=== PATIENT | female | born 1985 | race Caucasian/White ===

== ENCOUNTER → 2019-07-16 | Outpatient (CLI) | payer OTHER | LOC: COL.RAD 13:23 | DX: M54.5 Low back pain (principal) ==

== ENCOUNTER → 2020-09-29 | Outpatient (CLI) | payer OTHER | LOC: COL.RAD 10:26 | DX: R59.0 Localized enlarged lymph nodes (principal); R91.1 Solitary pulmonary nodule; R91.8 Other nonspecific abnormal finding of lung field | CPT/HCPCS: Q9967 ==

== ENCOUNTER 2021-11-11 09:05 | Outpatient (CLI) | payer OTHER ==
[~2021-11-11] VITALS: Ht 160 cm; Wt 44.7 kg
[2021-11-11] VITALS (7 sets, daily range): BP systolic 97–107; BP diastolic 65–73; PULSE 66–77; TEMP 98
[~2021-11-11 09:05] MED LIST: BUSPAR DIVIDOSE15 MG PO; CODEINE PO; EXCEDRIN1 TAB PO; PREMARIN 0.60.625 M1 PO; SOMA250 MG PO; ZYRTEC 10MG10 MG PO; [UNRECOGNIZED DRUG - OTHER] PO
--- NOTE | 2021-11-11 12:05 | NUR ---
DC instructions reviewed with pt. She expresses understanding. Bandaid remains clean, dry and intact. No change in pain level or new symptoms post procedure. Pt is steady on feet to restroom. She is assisted out to friend's car by wheelchair.
== END 2021-11-11 12:05 | disposition home or self-care (01) ==
LOC: COL.RAD 09:05
DX: M51.26 Other intervertebral disc displacement, lumbar region (principal); M43.27 Fusion of spine, lumbosacral region